=== PATIENT | male | born 1960 | race Caucasian/White ===

== ENCOUNTER 2018-05-01 19:52 | Inpatient (IN) | payer OTHER ==
[2018-05-01] MEDS: ALBUTEROL SO4 2.5/IPRATROPIUM 0.5 INH SOL 3 ML VIAL.NEB. NEB SCH ×3 (20:10→20:46)
[2018-05-01] MEDS ORDERED: ALBUTEROL SO4 2.5/IPRATROPIUM 0.5 INH SOL 3 ML VIAL.NEB. NEB ONE (20:20)
[2018-05-01 20:30] LABS: VENOUS PC02 48.2 mmHg (38-52); VENOUS PH 7.37 (7.32-7.42); VENOUS PO2 42.6 mmHg (28-48)
[2018-05-01 20:32] LABS: BASO % 0.4 % (0-2.0); EOS % 0.6 % (0-4.5); HEMATOCRIT 45.5 % (35.4-49); HEMOGLOBIN 15.7 GM/dL (11.7-16.9); LYMPH % 11.8 % (8-40); MCH 31.6 pg (25.7-33.7); MCHC 34.5 g/dl (32.0-35.9); MEAN CELL VOLUME 91.6 fl (80-96); MEAN PLT VOLUME 9.2 fl (7.5-11.1); MONO % 4.4 % (3.8-10.2); NEUT % 82.8 % (42.8-82.8); PLATELET COUNT 283 K/MM3 (134-434); RBC 4.97 M/mm3 (4.00-5.60); RDW 13.7 % (11.9-15.9); WHITE BLOOD COUNT 16.6 K/mm3 (4.0-10.0)
[2018-05-01 20:49] LABS: INR 0.99 (0.83-1.09); PROTHROMBIN TIME (PATIENT) 11.7 SEC (9.7-13.0)
[2018-05-01 20:52] LABS: ACTIVATED PTT 31.1 SECONDS (25.2-36.5)
[2018-05-01 21:06] LABS: ALBUMIN 4.2 g/dl (3.4-5.0); ALK PHOS 91 U/L (45-117); ANION GAP 8 MMOL/L (8-16); BILIRUBIN,TOTAL 0.5 mg/dL (0.2-1); BLOOD UREA NITROGEN 18 mg/dL (7-18); CALCIUM 9.3 mg/dL (8.5-10.1); CHLORIDE 103 mmol/L (98-107); CO2 27 mmol/L (21-32); CREATININE 0.5 mg/dL (0.55-1.3); GLUCOSE,RANDOM 97 mg/dL (74-106); SGOT/AST 16 U/L (15-37); SGPT/ALT 22 U/L (13-61); SODIUM 139 mmol/L (136-145); TOT PROT 7.7 g/dl (6.4-8.2)
[2018-05-01] MEDS ORDERED: VANCOMYCIN 1,000 MG in DEXTROSE 5%-WATER - 250 ML IVPB ONE (22:33)
[2018-05-01] MEDS ORDERED: PIPERACILLIN/TAZOB 3.375 GM 3.375 GM in DEXTROSE 5%-WATER - 50 ML IVPB ONE (22:33)
--- NOTE | 2018-05-01 22:37 | PDOC ---
Attending Attestation - HPI HPI: 05/01/18 23:10 The patient is a 57 year old male, with a significant past medical history of ALS, and DNR/DNI of who presents to the emergency department, via EMS, with chest pain since Sunday. The patient arrived monitored to a CPAP machine by EMS. The patients chest pain is associated with congestion, cough, and shortness of breath. The patient denies headache or dizziness. The patient denies fever, nausea, vomit, diarrhea or constipation. The patient denies dysuria, frequency, urgency or hematuria. Allergies: NKDA Past surgical history: None reported Social history: Active smoker - Physicial Exam PE: 05/01/18 23:11 GENERAL: Awake, alert, and fully oriented, uncomfortable appearing. HEAD: No signs of trauma EYES: PERRLA, EOMI, sclera anicteric, conjunctiva clear ENT: Auricles normal inspection, hearing grossly normal, nares patent, oropharynx clear without exudates. (+) dry mucosa NECK: Normal ROM, supple, no lymphadenopathy, JVD, or masses LUNGS:(+) rhonchorous. In distress, decreased breath sounds on right. No wheezes, and no crackles. No rails. HEART: (+) Tachycardic. normal S1 and S2, no murmurs, rubs or gallops ABDOMEN: Soft, nontender, normoactive bowel sounds. No guarding, no rebound. No masses EXTREMITIES:(+) flaccid upper and lower extremity. Normal range of motion, no edema. No clubbing or cyanosis. No cords, erythema, or tenderness NEUROLOGICAL: Cranial nerves II through XII grossly intact. Normal speech, normal gait SKIN: Warm, Dry, normal turgor, no rashes or lesions noted. <Landry Bronson - Last Filed: 05/01/18 23:10> - Resident Resident Name: Bernard Koehler - ED Attending Attestation I have performed the following: I have examined & evaluated the patient, The case was reviewed & discussed with the resident, I agree w/resident's findings & plan, Exceptions are as noted - Critical Care Time Total Critical Care Time: 45 Critical Care Statement: The care of this patient involved high complexity decision making to prevent further life threatening deterioration of the patient 's condition and/or to evaluate & treat vital organ system(s) failure or risk of failure. - Medical Decision Making 05/01/18 22:35 I, Dr. Bertha Weaver DO, attest that this document has been prepared under my direction and personally reviewed by me in its entirety. I further attest, that it accurately reflects all work, treatment, procedures and medical decision -making performed by me. 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 at night presents with 4 days of congestion/cough/sob -rhonchorous bs on exam, no fevers -pt is DNR/I, comfort care only w abx -pt does not want IVF hydration and fam in agreement -will give abx given cough/coarse bs -will send labs 05/01/18 22:54 pt requesting to be taken off bipap and placed on nrb-understands risks 05/01/18 22:55 r sided pna on cxr abx and cultures ordered and sent microblog sent to [facility] for admission for pna, comfort care + abx, resp failure 05/01/18 23:35 case discussed with [facility] who accepts pt to service <Bertha Weaver - Last Filed: 05/01/18 23:36> *DC/Admit/Observation/Transfer - Attestations Scribe Attestion: 05/01/18 23:11 Documentation prepared by Landry Bronson, acting as medical laboratory scientist for Bertha Weaver DO, MD <Landry Bronson - Last Filed: 05/01/18 23:10> - Discharge Dispostion Decision to Admit order: Yes <Bertha Weaver - Last Filed: 05/01/18 23:36> Diagnosis at time of Disposition: Pneumonia, Respiratory failure, ALS (amyotrophic lateral sclerosis) - Discharge Dispostion Condition at time of disposition: Stable Heart Score/ECG Review - ECG Intrepretation Comment:: 05/01/18 22:50 sinus tach at 106, nl axis, nl interval, baseline artifact, abnl ekg <Bertha Weaver - Last Filed: 05/01/18 23:36>
[2018-05-01] MEDS ORDERED: PIPERACILLIN/TAZOB 3.375 GM 3.375 GM/50 ML BAG IVPB ONE (22:38)
--- NOTE | 2018-05-01 22:57 | PDOC ---
History of Present Illness - General Chief Complaint: Shortness of Breath Stated Complaint: SHORTNESS OF BREATH Time Seen by Provider: 05/01/18 19:59 History Source: Patient Exam Limitations: Clinical Condition - History of Present Illness Initial Comments: 05/01/18 22:51 Patient is a 57M with history of ALS, DNR/DNI, active smoker coming in today with respiratory distress. Patient arrived via EMS on CPAP. Paperwork supplied by EMS state what the patient wants: DNR/DNI, no assistance with ventilation, no IV fluids, no feeding tubes. Patient is ok with antibiotics. On comfort care. Family and patient relate that he has been coughing for the past two days with chills. No nausea, vomiting. Does have chest pain. Past History - Past Medical History Allergies/Adverse Reactions: Allergies Allergy/AdvReac Type Severity Reaction Status Date / Time No Known Drug Allergies Allergy Verified 06/13/12 12:24 Home Medications: Ambulatory Orders Ascorbic Acid [Vitamin C] 500 mg PO DAILY 06/10/12 Oxycodone HCl/Acetaminophen [Percocet 5-325 mg Tablet] 1 - 2 combo PO Q4HWA PRN #60 tablet 06/13/12 Anemia: No Asthma: No Cancer: No Cardiac Disorders: No CVA: No COPD: No CHF: No Dementia: No Diabetes: No GI Disorders: No Disorders: No HTN: No Hypercholesterolemia: No Liver Disease: No Seizures: No Thyroid Disease: No Other medical history: H/O ALS - Surgical History Abdominal Surgery: No Appendectomy: No Cardiac Surgery: No Cholecystectomy: No Lung Surgery: No Neurologic Surgery: No Orthopedic Surgery: Yes (S/P INJURY TO RIGHT ARM) - Suicide/Smoking/Psychosocial Hx Smoking History: Unknown if ever smoked Have you smoked in the past 12 months: Yes Number of Cigarettes Smoked Daily: 20 'Breaking Loose' booklet given: 06/10/12 Hx Alcohol Use: No Drug/Substance Use Hx: No Substance Use Type: Alcohol Hx Substance Use Treatment: No Review of Systems - Review of Systems Comments:: 05/01/18 22:55 GENERAL/CONSTITUTIONAL: No fever or chills. No weakness. HEAD, EYES, EARS, NOSE AND THROAT: No change in vision. No sore throat. CARDIOVASCULAR: +chest pain +shortness of breath RESPIRATORY: +cough, no wheezing, or hemoptysis. GASTROINTESTINAL: No nausea, vomiting, diarrhea or constipation. GENITOURINARY: No dysuria, frequency, or change in urination. MUSCULOSKELETAL: No joint or muscle swelling or pain. No neck or back pain. SKIN: No rash NEUROLOGIC: No headache, vertigo, loss of consciousness, or change in strength/ sensation. ALLERGIC/IMMUNOLOGIC: No hives or skin allergy. *Physical Exam - Vital Signs Last Vital Signs Temp Pulse Resp BP Pulse Ox 98.2 F 116 H 24 H 167/112 H 99 05/01/18 19:53 05/01/18 19:53 05/01/18 19:53 05/01/18 19:53 05/01/18 20:00 - Physical Exam Comments: 05/01/18 22:56 GENERAL: Awake, alert, and fully oriented, in distress, cachetic HEAD: No signs of trauma, normocephalic, atraumatic EYES: PERRLA, EOMI, sclera anicteric, conjunctiva clear ENT: Auricles normal inspection, hearing grossly normal, nares patent, oropharynx clear without exudates. Moist mucosa NECK: Normal ROM, supple, no lymphadenopathy, JVD, or masses LUNGS: In distress, decreased breath sounds on right. HEART: Tachycardic, normal S1 and S2, no murmurs, rubs or gallops, peripheral pulses normal and equal bilaterally. ABDOMEN: Soft, nontender, normoactive bowel sounds. No guarding, no rebound. No masses EXTREMITIES: Normal inspection, Normal range of motion, no edema. No clubbing or cyanosis. NEUROLOGICAL: Cranial nerves II through XII grossly intact. Dysphagia and poor speech at baseline. No focal sensorimotor deficits SKIN: Warm, Dry, normal turgor, no rashes or lesions noted. Moderate Sedation - Procedure Monitoring Vital Signs: Procedure Monitoring Vital Signs Temperature 98.2 F 05/01/18 19:53 Pulse Rate 116 H 05/01/18 19:53 Respiratory Rate 24 H 05/01/18 19:53 Blood Pressure 167/112 H 05/01/18 19:53 O2 Sat by Pulse Oximetry (%) 99 05/01/18 20:00 ED Treatment Course - LABORATORY CBC & Chemistry Diagram: 05/01/18 20:14 05/01/18 20:14 - ADDITIONAL ORDERS Additional order review: Laboratory Results 05/01/18 05/01/18 05/01/18 20:14 20:14 20:14 PT with INR INR PTT (Actin FS) VBG pH 7.37 POC VBG pCO2 48.2 POC VBG pO2 42.6 Mixed VBG HCO3 27.2 H Sodium 139 Potassium 4.0 Chloride 103 Carbon Dioxide 27 Anion Gap 8 BUN 18 Creatinine 0.5 L Creat Clearance w eGFR > 60 Random Glucose 97 Lactic Acid 1.2 Calcium 9.3 Total Bilirubin 0.5 AST 16 ALT 22 Alkaline Phosphatase 91 Troponin I < 0.02 Total Protein 7.7 Albumin 4.2 05/01/18 20:14 PT with INR 11.70 INR 0.99 PTT (Actin FS) 31.1 VBG pH POC VBG pCO2 POC VBG pO2 Mixed VBG HCO3 Sodium Potassium Chloride Carbon Dioxide Anion Gap BUN Creatinine Creat Clearance w eGFR Random Glucose Lactic Acid Calcium Total Bilirubin AST ALT Alkaline Phosphatase Troponin I Total Protein Albumin 05/01/18 20:14 RBC 4.97 MCV 91.6 MCHC 34.5 RDW 13.7 MPV 9.2 Neutrophils % 82.8 D Lymphocytes % 11.8 D Monocytes % 4.4 Eosinophils % 0.6 D Basophils % 0.4 - RADIOLOGY Radiology Studies Ordered: Category Date Time Status CHEST X-RAY PORTABLE* [RAD] Stat Radiology 05/01/18 19:59 Taken - Medications Given in the ED: ED Medications Discontinued Medications Generic Name Dose Route Start Last Admin Trade Name Freq PRN Reason Stop Dose Admin Albuterol/Ipratropium 1 amp 05/01/18 20:00 05/01/18 20:46 Duoneb - NEB 05/01/18 20:46 1 amp Q15M TOBI Administration Medical Decision Making - Medical Decision Making 05/01/18 22:57 Patient is 57M with history of ALS here today with respiratory distress. Vitals notable for tachycardia, tachypnea. DDx includes, but is not limited to: neurogenic respiratory failure, pneumonia, copd. Will treat with duonebs and vanc/zosyn. Fluids not consistent with patient's goals at this time. After discussion with family and patient, all in agreement to remove bipap. Non- rebreather placed. Family advised that outcome is likely poor. CXR shows right sided multilobar pneumonia +leukocytosis, labs otherwise unremarkable. Hospitalist paged for admission. *DC/Admit/Observation/Transfer Diagnosis at time of Disposition: Pneumonia, ALS (amyotrophic lateral sclerosis), Respiratory failure - Discharge Dispostion Condition at time of disposition: Stable Decision to Admit order: Yes - Referrals - Patient Instructions - Post Discharge Activity
[2018-05-01] MEDS ORDERED: VANCOMYCIN 1 GRAM (PRE-DOCKED) 1,000 MG/250 ML BAG IVPB ONE (22:58)
--- NOTE | 2018-05-02 00:12 | PN ---
Teaching Attending Note Name of Resident: Swetha Boyce ATTENDING PHYSICIAN STATEMENT I saw and evaluated the patient. I reviewed the resident's note and discussed the case with the resident. I agree with the resident's findings and plan as documented. SUBJECTIVE: Patient is a 57 year old man with history of ALS, DNR/DNI, active smoker coming in today with severe respiratory distress. Patient arrived via EMS on CPAP. Paperwork supplied by EMS state what the patient wants: DNR/DNI, no assistance with ventilation, no IV fluids, no feeding tubes. Patient is okay with antibiotics. On comfort care. Family and patient relate that he has been coughing for the past two days with chills. No nausea, vomiting. Does have chest pain, but also says he has pain allover. OBJECTIVE: Alert and cachectic and in moderate respiratory distress on nonrebreather Vital Signs Period Temp Pulse Resp BP Sys/Rojas Pulse Ox Last 24 Hr 98.2 F 116-122 20-24 159-167/99-112 97-99 HEENT: No Jaundice, eye redness or discharge, PERRLA, EOMI. Normocephalic, atraumatic. External ears are normal and hearing is grossly intact. No nasal discharge. Neck: Supple, nontender. No palpable adenopathy or thyromegaly. No JVD Chest: Good effort. Diffuse rhonchi. Clear to percussion. Heart: Regular. No S3, rub or murmur Abdomen: Not distended, soft, nontender and no HSM. No rebound or guarding. Normoactive bowel sounds. Ext: Peripheral pulses intact. No leg edema. Skin: Warm and dry. No petechiae, rash or ecchymosis. Neuro: Alert. Oriented to person and place. Global weakness with very little muscle resistance to movement. CN 2-12 grossly intact. Sensation grossly intact in all four extremities and DTR are diminishes symmetric. Current Medications Generic Name Dose Route Start Last Admin Trade Name Freq PRN Reason Stop Dose Admin Baclofen 10 mg 05/02/18 06:00 Lioresal - PO TID [facility] Gabapentin 300 mg 05/02/18 06:00 Neurontin - PO TID [facility] Ceftriaxone Sodium 1 gm/ 50 mls @ 100 mls/hr 05/02/18 10:00 Dextrose IVPB DAILY [facility] Protocol Metronidazole 500 mg in 100 mls @ 100 mls/hr 05/02/18 03:00 Flagyl 500mg Premixed Ivpb - IVPB Q6H-IV TOBI Methylprednisolone Sodium Succinate 60 mg 05/02/18 01:30 Solu-Medrol - IVPUSH Q6H-IV TOBI Morphine Sulfate 2 mg 05/02/18 00:12 Morphine Sulfate IVPUSH Q4H PRN PAIN LEVEL 6-10 Non-Formulary Medication 10 mg 05/02/18 22:00 Diazepam [Diazepam] PO HS [facility] Home Medications Medication Instructions Recorded Ascorbic Acid [Vitamin C] 500 mg PO DAILY 06/10/12 Oxycodone HCl/Acetaminophen 1 - 2 combo PO Q4HWA PRN #60 tablet 06/13/12 [Percocet 5-325 mg Tablet] Baclofen 10 mg PO TID 05/02/18 Diazepam 10 mg PO HS 05/02/18 Gabapentin 300 mg PO TID 05/02/18 Mirtazapine [Remeron -] 15 mg PO DAILY 05/02/18 Zolpidem Tartrate [Ambien] 15 mg PO DAILY 05/02/18 Abnormal Lab Results 05/01/18 05/01/18 05/01/18 20:14 20:14 20:14 WBC 16.6 H Absolute Neuts (auto) 13.8 H Mixed VBG HCO3 27.2 H Creatinine 0.5 L Urine Ketones Urine Blood 05/02/18 00:30 WBC Absolute Neuts (auto) Mixed VBG HCO3 Creatinine Urine Ketones 1+ H Urine Blood 2+ H ASSESSMENT AND PLAN: 1. Pneumonia with acute respiratory failure - CXR shows RLL infiltrate consistent with aspiration pneumonia. Patient does not want Bipap - will continue on nonrebreather. Will treat with IV Rocephin and Flagyl; solumedrol and duoneb. Restart his necessary home medications. Provide comfort care in accordance with patient and familys' wishes; consult palliative care; use IV morphine for pain control and provide generous emotional support. Will keep him NPO for now because of difficulty swallowing. Consult speech and swallow for evaluation. 2. DVT prophylaxis - Lovenox 40 mg SQ q 24 hours. 3. Advance directives - DNR/DNI
--- NOTE | 2018-05-02 00:12 | HP ---
CHIEF COMPLAINT: SOB HISTORY OF PRESENT ILLNESS: Patient is a 57yo M with a PMHX of ALS, DNR/DNI, presenting with worsening shortness of breath over the last 3 days. Patient and family state he has been coughing with sputum production. He does not know the color because he is unable to spit it up. He also says he has congestion and worsening shortness of breath. He said he may have choked on food over the last few days because of dysphagia. Patient/Family say he has "end-stage ALS" and want mostly comfort measures. They are refusing IV fluids, blood draws and further testing, but are requesting Antibiotics and selected home medications. They do not want BIPAP but are in agreement with a non-rebreather. Patient's family are requesting palliative care. Patient also complains of diffuse pain all over his body and requests comfort care. ER course was notable for: (1) R sided PNA on CXR (2) Vanc/Zosyn given in ED (3) 116 HR, 16.6 WBC Social History: Smoking: daily smoker Family History: Allergies No Known Drug Allergies Allergy (Verified 06/13/12 12:24) HOME MEDICATIONS: Home Medications Medication Instructions Recorded Ascorbic Acid [Vitamin C] 500 mg PO DAILY 06/10/12 Oxycodone HCl/Acetaminophen 1 - 2 combo PO Q4HWA PRN #60 tablet 06/13/12 [Percocet 5-325 mg Tablet] REVIEW OF SYSTEMS CONSTITUTIONAL: Absent: fever, chills, diaphoresis, generalized weakness, malaise, loss of appetite, weight change HEENT: nasal congestion Absent: rhinorrhea, throat pain, throat swelling, difficulty swallowing, mouth swelling, ear pain, eye pain, visual changes CARDIOVASCULAR: Absent: chest pain, syncope, palpitations, irregular heart rate, lightheadedness , peripheral edema RESPIRATORY: cough, sob, dyspnea Absent: dyspnea with exertion, orthopnea, wheezing, stridor, hemoptysis GASTROINTESTINAL: Absent: abdominal pain, abdominal distension, nausea, vomiting, diarrhea, constipation, melena, hematochezia GENITOURINARY: Absent: dysuria, frequency, urgency, hesitancy, hematuria, flank pain, genital pain MUSCULOSKELETAL: Absent: myalgia, arthralgia, joint swelling, back pain, neck pain SKIN: Absent: rash, itching, pallor HEMATOLOGIC/IMMUNOLOGIC: Absent: easy bleeding, easy bruising, lymphadenopathy, frequent infections PHYSICAL EXAMINATION Vital Signs - 24 hr 05/01/18 05/01/18 05/01/18 19:53 20:00 23:34 Temperature 98.2 F Pulse Rate 116 H Respiratory 24 H Rate Blood Pressure 167/112 H O2 Sat by Pulse 97 99 98 Oximetry (%) GENERAL: cachetic, a/o x 3, in moderate distress, dyspneic, tachypneic EYES: conjunctiva clear. EARS, NOSE, THROAT: oropharynx clear without exudates.dry mucous membranes NECK: supple without lymphadenopathy, JVD, or masses. LUNGS: rhonchorus breath sounds, decreased breath sounds on right. HEART: Regular rate and rhythm, normal S1 and S2 without murmur, rub or gallop. ABDOMEN: Soft, nontender, not distended, normoactive bowel sounds MUSCULOSKELETAL:: flaccid upper and lower extremity. LOWER EXTREMITIES: 2+ pulses, No peripheral edema. PSYCHIATRIC: Cooperative. Laboratory Results - last 24 hr 05/01/18 05/01/18 05/01/18 20:14 20:14 20:14 WBC 16.6 H RBC 4.97 Hgb 15.7 Hct 45.5 MCV 91.6 MCH 31.6 MCHC 34.5 RDW 13.7 Plt Count 283 MPV 9.2 Absolute Neuts (auto) 13.8 H Neutrophils % 82.8 D Lymphocytes % 11.8 D Monocytes % 4.4 Eosinophils % 0.6 D Basophils % 0.4 Nucleated RBC % 0 PT with INR 11.70 INR 0.99 PTT (Actin FS) 31.1 VBG pH 7.37 POC VBG pCO2 48.2 POC VBG pO2 42.6 Mixed VBG HCO3 27.2 H Sodium Potassium Chloride Carbon Dioxide Anion Gap BUN Creatinine Creat Clearance w eGFR Random Glucose Lactic Acid Calcium Total Bilirubin AST ALT Alkaline Phosphatase Troponin I Total Protein Albumin 05/01/18 05/01/18 20:14 20:14 WBC RBC Hgb Hct MCV MCH MCHC RDW Plt Count MPV Absolute Neuts (auto) Neutrophils % Lymphocytes % Monocytes % Eosinophils % Basophils % Nucleated RBC % PT with INR INR PTT (Actin FS) VBG pH POC VBG pCO2 POC VBG pO2 Mixed VBG HCO3 Sodium 139 Potassium 4.0 Chloride 103 Carbon Dioxide 27 Anion Gap 8 BUN 18 Creatinine 0.5 L Creat Clearance w eGFR > 60 Random Glucose 97 Lactic Acid 1.2 Calcium 9.3 Total Bilirubin 0.5 AST 16 ALT 22 Alkaline Phosphatase 91 Troponin I < 0.02 Total Protein 7.7 Albumin 4.2 ASSESSMENT/PLAN: 57yo M with a PMHX of ALS, DNR/DNI, presenting with worsening shortness of breath over the last 3 days. #Acute Respiratory Failure -2/2 Possible Aspiration PNA -CXR shows RLL infiltrate. -IV abx: 1x Vanc, Zosyn -Start Ceftriaxone, Flagyl -No IV fluids per patient/family request -No further testing, including sputum cultures, lab work, IV fluids. -No duonebs per patient request. -Patient gives permission for IV steroids. -Start Medrol 60 q6 -Med-Rec and continue home meds per family request -palliative care -morphine 2mg PRN for pain control -speech and swallow #ALS -cont. Home medications -Baclofen 10mg TID -Gabapentin 300 TID -Diazepam 10mg HS -confirm whether patient takes Remeron and Zolpidem. #FEN -no IV fluids -no further lab testing -NPO Patient/Family say he has "end-stage ALS" and want mostly comfort measures. They are refusing IV fluids, blood draws and further testing, but are requesting Antibiotics and selected home medications. They do not want BIPAP but are in agreement with a non-rebreather Med-surge Visit type - Emergency Visit Emergency Visit: Yes ED Registration Date: 05/01/18 Care time: The patient presented to the Emergency Department on the above date and was hospitalized for further evaluation of their emergent condition. - New Patient This patient is new to me today: Yes Date on this admission: 05/03/18 - Critical Care Critical Care patient: No
[2018-05-02] MEDS ORDERED: morphine CARPU-JECT 2 MG/1 ML DISP.SYRIN IVPUSH ONE (00:34)
[2018-05-02] MEDS ORDERED: MORPHINE SULFATE 2 MG/ML VIAL ONE (00:37)
[2018-05-02] MEDS ORDERED: ALBUTEROL SO4 0.083% IH SOL 2.5 MG/3 ML VIAL.NEB. NEB PRN (00:39)
[2018-05-02] MEDS ORDERED: ALBUTEROL SO4 2.5/IPRATROPIUM 0.5 INH SOL 3 ML VIAL.NEB. NEB SCH (00:45)
[2018-05-02] MEDS ORDERED: methylPREDNISolone NA SUCC 125 MG/2 ML VIAL IVPUSH SCH (00:45)
[2018-05-02 00:47] LABS: URINE APPEARANCE CLEAR; URINE BILIRUBIN NEGATIVE (<2.0 mg/dL); URINE COLOR YELLOW; URINE GLUCOSE (UA) NEGATIVE (NEGATIVE); URINE KETONE 1+ (NEGATIVE); URINE LEUK ESTERASE NEGATIVE (NEGATIVE); URINE NITRITE NEGATIVE (NEGATIVE); URINE PROTEIN NEGATIVE (NEGATIVE); URINE UROBILINOGEN NEGATIVE mg/dL (0.2-1.0)
[2018-05-02 00:59] LABS: EPI CELLS RARE /HPF (FEW); URINE BACTERIA RARE /hpf (NONE SEEN); URINE MUCUS MODERATE
[2018-05-02] MEDS ORDERED: MORPHINE SULFATE 2 MG/ML VIAL IVPUSH ONE (02:03)
[2018-05-02] MEDS: methylPREDNISolone NA SUCC 125 MG/2 ML VIAL IVPUSH SCH ×4 (02:11→21:46)
[2018-05-02] MEDS: MORPHINE SULFATE 2 MG/ML VIAL IVPUSH PRN ×2 (05:21→09:20)
[2018-05-02] MEDS: BACLOFEN 10 MG TABLET (FP) PO SCH ×5 (05:22→22:00)
[2018-05-02] MEDS: GABAPENTIN 300 MG CAPSULE (FP) PO SCH ×5 (05:22→22:19)
[2018-05-02] MEDS ORDERED: cefTRIAXone SODIUM 1 GM VIAL ONE (09:11)
[2018-05-02] MEDS ORDERED: DEXTROSE 5%-WATER - 50 ML IVPB ONE (09:12)
--- NOTE | 2018-05-02 09:14 | PN ---
Teaching Attending Note Name of Resident: Kenneth Smith ATTENDING PHYSICIAN STATEMENT I saw and evaluated the patient. I reviewed the resident's note and discussed the case with the resident. I agree with the resident's findings and plan as documented. SUBJECTIVE: c/o pain refusing for BIPAP OBJECTIVE: Vital Signs Temperature 98.8 F 05/02/18 01:38 Pulse Rate 135 H 05/02/18 01:38 Respiratory Rate 20 05/02/18 01:38 Blood Pressure 147/88 05/02/18 01:38 O2 Sat by Pulse Oximetry (%) 90 L 05/02/18 02:00 Elderly man cachectic on NRB mask mild respiratory distress HEENT: Mm dry, NECK; No JVD No Bruit CHEST: conducted sound no rhonci or wheezes CVS: S1S2 Tachycardia no m/r/g ABD: No distention BS + EXT: no edema CORRECTIONAL COUNSELOR/CASE MANAGER: advanced ALS with qudriplegia CBC, BMP 05/01/18 20:14 05/01/18 20:14 Active Medications Baclofen (Lioresal -) 10 mg PO TID TOBI Last Admin: 05/02/18 05:26 Dose: Not Given Diazepam (Valium -) 10 mg PO HS [facility] Gabapentin (Neurontin -) 300 mg PO TID TO[facility] Last Admin: 05/02/18 05:26 Dose: Not Given Ceftriaxone Sodium 1 gm/ (Dextrose) 50 mls @ 100 mls/hr IVPB DAILY [facility]; Protocol Metronidazole (Flagyl 500mg Premixed Ivpb -) 500 mg in 100 mls @ 100 mls/hr IVPB Q6H-IV TOBI Last Admin: 05/02/18 02:11 Dose: 100 mls/hr Methylprednisolone Sodium Succinate (Solu-Medrol -) 60 mg IVPUSH Q6H-IV TOBI Last Admin: 05/02/18 02:11 Dose: 60 mg Morphine Sulfate (Morphine Sulfate) 2 mg IVPUSH Q4H PRN PRN Reason: PAIN LEVEL 6-10 Last Admin: 05/02/18 05:21 Dose: 2 mg ASSESSMENT AND PLAN: 57 yrs old advanced ALS with functional qudriplegia F/U at [facility] , bed bound BIB sister with c/o SOB and Palliative care , patient is alert oriented make all decision in the Ed Hypoxic and c/o body pain , doesnt want any labs, intervention, PEG placement only agrrreeing for IV abx. Problem List - Problems (1) ALS (amyotrophic lateral sclerosis) Assessment/Plan: advanced involving lower extermities, upper extermities and cbulbar palsy Code(s): G12.21 - AMYOTROPHIC LATERAL SCLEROSIS (2) Pneumonia Assessment/Plan: most likely aspiration pneumonia Code(s): J18.9 - PNEUMONIA, UNSPECIFIED ORGANISM (3) Functional quadriplegia Assessment/Plan: Due to ALS Code(s): R53.2 - FUNCTIONAL QUADRIPLEGIA (4) Palliative care encounter Assessment/Plan: Referred to pallitive care to define goals and care Code(s): Z51.5 - ENCOUNTER FOR PALLIATIVE CARE
[2018-05-02] MEDS ORDERED: AZITHROMYCIN IVPB 250 MG in DEXTROSE 5%-WATER - 250 ML IVPB SCH (10:00)
[2018-05-02] MEDS ORDERED: ZOLPIDEM TARTRATE 15 MG PO SCH (10:00)
[2018-05-02] MEDS: CEFTRIAXONE 1 GM in DEXTROSE 5%-WATER - 50 ML IVPB SCH (11:07)
[2018-05-02 11:32] VITALS: BMI 18.5
--- NOTE | 2018-05-02 11:50 | CONSULT ---
Admitting History and Physical - Primary Care Physician PCP: Clifford Parisi - Admission History of Present Illness: Per EMR: Patient is a 57yo M with a PMHX of ALS, DNR/DNI, presenting with worsening shortness of breath over the last 3 days. Patient and family state he has been coughing with sputum production. He does not know the color because he is unable to spit it up. He also says he has congestion and worsening shortness of breath. He said he may have choked on food over the last few days because of dysphagia. Patient/Family say he has "end-stage ALS" and want mostly comfort measures. They are refusing IV fluids, blood draws and further testing, but are requesting Antibiotics and selected home medications. They do not want BIPAP but are in agreement with a non-rebreather. Patient's family are requesting palliative care. Patient also complains of diffuse pain all over his body and requests comfort. ER course was notable for: (1) R sided PNA on CXR (2) Vanc/Zosyn given in ED (3) 116 HR, 16.6 WBC Pt's caregiver was present and served as informant. He was eating regular food/ thin liquid with fair tolerance until recently.He communicated with a computer with a camera,mouse by hisside, until a month ago. History Source: Caregiver Limitations to Obtaining History: Clinical Condition - Smoking History Smoking history: Current every day smoker Have you smoked in the past 12 months: Yes Aproximately how many cigarettes per day: 20 - Alcohol/Substance Use Hx Alcohol Use: No History - Admission Reason For Visit: AMYOTROPIC LATERAL SCLEROSIS PNEUMONIA - Diagnostics X-ray: Report Reviewed - General Mental Status: Alert and Oriented, Awake and Alert, Able to Follow Commands Attention: Intact Ability to Follow Directions: Good Head/Neck Control: Impaired - Hearing Hearing: Normal Speech Evaluation - Communication Primary Language: MALTESE Communication: Yes: Dysarthria Oral Expression Ability: Yes: Severe Impairment - Speech Production Able to Make Needs Known: Yes: Severely Impaired Intelligibility: Yes: Severely Impaired - Speech Characteristics Voice Loudness: Mildly Soft/Quiet Voice Pitch: Yes: Moderatley Low Voice Phonatory-based Quality: Yes: Harsh Speech Pattern: Impaired Speech Clarity: < 25% Nasal Resonance: Hypernasal Articulation: Yes: Imprecise (poor differentiation of vowels/consonants with moderate to severely weak tongue/labial function) Voice, Other Observations: Yes: Inadequate Breath Support - Language/Auditory Comprehension Observation: Able to respond to yes/no queries: Yes, Yes/No Confusion: No, Comprehends Conversational Speech: Yes - Language/Verbal Expression Able to Communicate Wants and Needs: Yes: Severely Impaired Functional Communication Status: Yes: Severely Impaired - Swallow Evaluation/Bedside Assessment Current Nutritional Intake: NPO Oral Secretions: Yes: WFL Dentition: Yes: Adequate Jaw Position: Open at Rest Against Resistance Opening: Weak Against Resistance Closing: Weak Pucker Lips: Weak Smile: Weak Lingual Speed of Movement: Reduced Lingual Movement Strgth Against Opposition: Reduced Lingual Movement Characteristics: Fasciculations Velopharyngeal Movement: Hypernasality Laryngeal Elevation: Impaired Laryngeal Movement: Reduced Excursion, Labored,delay initiation, Reduced Velocity Needs Assistance: Yes Recommendations - Speech Evaluation, Impression/Plan Impression: Unfortunate 57 yo with ALS with severe Bulbar symptoms including Dyarthria/Dysphagia. Pt is DNR/DNI. He refused PO trials or use of communication board with me or staff. Yes/No reponses are appropriate and provide pt with some ability to respond to questions although ability to express himself is severely impaired. Pt has a non rebreather on, which worsens verbal communication, although even when briefly removed, intelligibilty and functional communication is quite poor. - Disposition Discharge to: Hospice, To be Determined - Dysphagia Impressions/Plan Swallowing Skills: Impaired Dysphagia Impressions: Suspect Aspiration *Silent aspiration: cannot be R/O at bedside Dysphagia Treatment Plan: Other (mouth care if pt desires. Maintain HOB elevated , as tolerated and desired.) Recommendations: Other (To maximize communication, ask broad Yes/No questions initially eg -Do you need something? Are you comfortable? followed by more specific questions to anticipate wants/needs such as to you want me to adjust your position? Head, arms/legs/right/left etc.) - Recommendations Diet Consistency: NPO Liquids: NPO
[2018-05-02] MEDS ORDERED: MORPHINE SULFATE 2 MG/ML VIAL IVPUSH PRN (11:52)
--- NOTE | 2018-05-02 14:04 | PN ---
Physical Exam: SUBJECTIVE: Patient seen and examined OBJECTIVE: Vital Signs Period Temp Pulse Resp BP Sys/Rojas Pulse Ox Last 24 Hr 98.2 F-98.8 F 116-135 20-24 147-167/88-112 90-99 GENERAL: cachetic, a/o x 3, in moderate distress, dyspneic, tachypneic EYES: conjunctiva clear. EARS, NOSE, THROAT: oropharynx clear without exudates.dry mucous membranes NECK: supple without lymphadenopathy, JVD, or masses. LUNGS: no wheezing, no ronchi HEART: Regular rate and rhythm, normal S1 and S2 without murmur, rub or gallop. ABDOMEN: Soft, nontender, not distended, normoactive bowel sounds MUSCULOSKELETAL:: flaccid upper and lower extremity. LOWER EXTREMITIES: 2+ pulses, No peripheral edema. PSYCHIATRIC: Cooperative. Laboratory Results - last 24 hr 05/01/18 05/01/18 05/01/18 20:14 20:14 20:14 WBC 16.6 H RBC 4.97 Hgb 15.7 Hct 45.5 MCV 91.6 MCH 31.6 MCHC 34.5 RDW 13.7 Plt Count 283 MPV 9.2 Absolute Neuts (auto) 13.8 H Neutrophils % 82.8 D Lymphocytes % 11.8 D Monocytes % 4.4 Eosinophils % 0.6 D Basophils % 0.4 Nucleated RBC % 0 PT with INR 11.70 INR 0.99 PTT (Actin FS) 31.1 VBG pH 7.37 POC VBG pCO2 48.2 POC VBG pO2 42.6 Mixed VBG HCO3 27.2 H Sodium Potassium Chloride Carbon Dioxide Anion Gap BUN Creatinine Creat Clearance w eGFR Random Glucose Lactic Acid Calcium Total Bilirubin AST ALT Alkaline Phosphatase Troponin I Total Protein Albumin Urine Color Urine Appearance Urine pH Ur Specific [place] Urine Protein Urine Glucose (UA) Urine Ketones Urine Blood Urine Nitrite Urine Bilirubin Urine Urobilinogen Ur Leukocyte Esterase Urine WBC (Auto) Urine RBC (Auto) Ur Epithelial Cells Urine Bacteria Urine Mucus 05/01/18 05/01/18 05/02/18 20:14 20:14 00:30 WBC RBC Hgb Hct MCV MCH MCHC RDW Plt Count MPV Absolute Neuts (auto) Neutrophils % Lymphocytes % Monocytes % Eosinophils % Basophils % Nucleated RBC % PT with INR INR PTT (Actin FS) VBG pH POC VBG pCO2 POC VBG pO2 Mixed VBG HCO3 Sodium 139 Potassium 4.0 Chloride 103 Carbon Dioxide 27 Anion Gap 8 BUN 18 Creatinine 0.5 L Creat Clearance w eGFR > 60 Random Glucose 97 Lactic Acid 1.2 Calcium 9.3 Total Bilirubin 0.5 AST 16 ALT 22 Alkaline Phosphatase 91 Troponin I < 0.02 Total Protein 7.7 Albumin 4.2 Urine Color Yellow Urine Appearance Clear Urine pH 5.0 Ur Specific [place] 1.024 Urine Protein Negative Urine Glucose (UA) Negative Urine Ketones 1+ H Urine Blood 2+ H Urine Nitrite Negative Urine Bilirubin Negative Urine Urobilinogen Negative Ur Leukocyte Esterase Negative Urine WBC (Auto) 5 Urine RBC (Auto) 43 Ur Epithelial Cells Rare Urine Bacteria Rare Urine Mucus Moderate Active Medications Generic Name Dose Route Start Last Admin Trade Name Freq PRN Reason Stop Dose Admin Baclofen 10 mg 05/02/18 06:00 05/02/18 13:50 Lioresal - PO 10 mg TID TOBI Administration Diazepam 10 mg 05/02/18 22:00 Valium - PO HS TOBI Gabapentin 300 mg 05/02/18 06:00 05/02/18 13:50 Neurontin - PO 300 mg TID TOBI Administration Ceftriaxone Sodium 1 gm/ 50 mls @ 100 mls/hr 05/02/18 10:00 05/02/18 11:07 Dextrose IVPB 100 mls/hr DAILY TOBI Administration Protocol Metronidazole 500 mg in 100 mls @ 100 mls/hr 05/02/18 03:00 05/02/18 11:08 Flagyl 500mg Premixed Ivpb - IVPB 100 mls/hr Q6H-IV TOBI Administration Methylprednisolone Sodium Succinate 60 mg 05/02/18 01:30 05/02/18 11:08 Solu-Medrol - IVPUSH 60 mg Q6H-IV TOBI Administration Morphine Sulfate 2 mg 05/02/18 15:00 Morphine Sulfate IVPUSH Q6H-IV TOBI Morphine Sulfate 2 mg 05/02/18 11:52 Morphine Sulfate IVPUSH Q4H PRN PAIN LEVEL 6-10 ASSESSMENT/PLAN:57yo M with a PMHX of ALS, DNR/DNI, presenting with worsening shortness of breath over the last 3 days. #Acute Respiratory Failure -2/2 Possible Aspiration PNA -CXR shows RLL infiltrate. - antibiotic Ceftriaxone, Flagyl -No IV fluids per patient/family request -No further testing, including sputum cultures, lab work, IV fluids. -No duonebs per patient request. -Patient gives permission for IV steroids. -Start Medrol 40 q6 -palliative care consult appreciated -morphine 2mg PRN for pain control and standing -speech and swallow consult appreciated #ALS -cont. Home medications -Baclofen 10mg TID -Gabapentin 300 TID -Diazepam 10mg HS -confirm whether patient takes Remeron and Zolpidem. #FEN -no IV fluids -no further lab testing -NPO Med-surge Visit type - Emergency Visit Emergency Visit: Yes ED Registration Date: 05/01/18 Care time: The patient presented to the Emergency Department on the above date and was hospitalized for further evaluation of their emergent condition. - New Patient This patient is new to me today: Yes Date on this admission: 05/03/18 - Critical Care Critical Care patient: No
[2018-05-02] MEDS: MORPHINE SULFATE 2 MG/ML VIAL IVPUSH SCH ×2 (15:09→21:44)
--- NOTE | 2018-05-02 16:56 | EKG ---
Test Reason : Blood Pressure : / mmHG Vent. Rate : 106 BPM Atrial Rate : 106 BPM P-R Int : 148 ms QRS Dur : 100 ms QT Int : 354 ms P-R-T Axes : 055 080 037 degrees QTc Int : 470 ms POOR DATA QUALITY, INTERPRETATION MAY BE ADVERSELY AFFECTED SINUS TACHYCARDIA POSSIBLE LEFT ATRIAL ENLARGEMENT T WAVE ABNORMALITY, CONSIDER INFERIOR ISCHEMIA ABNORMAL ECG WHEN COMPARED WITH ECG OF 10-JUN-2012 10:01, T WAVE INVERSION NOW EVIDENT IN INFERIOR LEADS T WAVE INVERSION NOW EVIDENT IN ANTERIOR LEADS Confirmed by MATTHEW MAGANA MD ([id number]) on 05/02/2018 4:55:50 PM Referred By: Confirmed By:MATTHEW MAAGNA MD
[2018-05-02] MEDS: D5-1/2NS+20 MEQ KCL - 20 MEQ/1,000 ML INFUS.BAG IV SCH (20:13)
[2018-05-02] MEDS: diazePAM 5 MG TABLET PO SCH ×2 (21:50→22:20)
[2018-05-03] MEDS: MORPHINE SULFATE 2 MG/ML VIAL IVPUSH SCH ×4 (02:27→21:02)
[2018-05-03] MEDS: methylPREDNISolone NA SUCC 125 MG/2 ML VIAL IVPUSH SCH ×4 (02:29→21:02)
[2018-05-03] MEDS ORDERED: LORazepam 2 MG/ML SDV VIAL IVPUSH ONE (03:16)
[2018-05-03] MEDS: BACLOFEN 10 MG TABLET (FP) PO SCH ×3 (06:06→21:09)
[2018-05-03] MEDS: GABAPENTIN 300 MG CAPSULE (FP) PO SCH ×3 (06:06→21:09)
--- NOTE | 2018-05-03 09:25 | PN ---
Teaching Attending Note Name of Resident: Kenneth Smith ATTENDING PHYSICIAN STATEMENT I saw and evaluated the patient. I reviewed the resident's note and discussed the case with the resident. I agree with the resident's findings and plan as documented. SUBJECTIVE: OBJECTIVE: Vital Signs Temp 98.5 F 05/02/18 23:00 Pulse 109 H 05/02/18 23:00 Resp 21 H 05/02/18 23:00 BP 134/89 05/02/18 23:00 Pulse Ox 94 L 05/02/18 21:00 Elderly man cachectic on NRB mask mild respiratory distress HEENT: Mm dry, NECK; No JVD No Bruit CHEST: conducted sound no rhonci or wheezes CVS: S1S2 Tachycardia no m/r/g ABD: No distention BS + EXT: no edema PRODUCT MARKETING CONSULTANT: advanced ALS with qudriplegia Active Medications Baclofen (Lioresal -) 10 mg PO TID TOBI Last Admin: 05/02/18 05:26 Dose: Not Given Diazepam (Valium -) 10 mg PO HS TOBI Gabapentin (Neurontin -) 300 mg PO TID TOBI Last Admin: 05/02/18 05:26 Dose: Not Given Ceftriaxone Sodium 1 gm/ (Dextrose) 50 mls @ 100 mls/hr IVPB DAILY TOBI; Protocol Metronidazole (Flagyl 500mg Premixed Ivpb -) 500 mg in 100 mls @ 100 mls/hr IVPB Q6H-IV TOBI Last Admin: 05/02/18 02:11 Dose: 100 mls/hr Methylprednisolone Sodium Succinate (Solu-Medrol -) 60 mg IVPUSH Q6H-IV TOBI Last Admin: 05/02/18 02:11 Dose: 60 mg Morphine Sulfate (Morphine Sulfate) 2 mg IVPUSH Q4H PRN PRN Reason: PAIN LEVEL 6-10 Last Admin: 05/02/18 05:21 Dose: 2 mg ASSESSMENT AND PLAN: 57 yrs old advanced ALS with functional qudriplegia F/U at [facility] , bed bound BIB sister with c/o SOB and Palliative care , patient is alert oriented make all decision in the Ed Hypoxic and c/o body pain , today agreed for swallow evaluation and labs Problem List - Problems (1) ALS (amyotrophic lateral sclerosis) Assessment/Plan: advanced involving lower extremities, upper extremities and bulbar palsy (2) Pneumonia Assessment/Plan: most likely aspiration pneumonia cont current abx F/U CBC BMP Code(s): J18.9 - PNEUMONIA, UNSPECIFIED ORGANISM (3) Functional quadriplegia Assessment/Plan: Due to ALS Code(s): R53.2 - FUNCTIONAL QUADRIPLEGIA (4) Palliative care encounter Assessment/Plan: Referred to pallitive care to define goals and care Code(s): Z51.5 - ENCOUNTER FOR PALLIATIVE CARE
[2018-05-03] MEDS ORDERED: DEXTROSE 5%-WATER - 50 ML IVPB ONE (09:59)
[2018-05-03] MEDS ORDERED: cefTRIAXone SODIUM 1 GM VIAL ONE (09:59)
[2018-05-03] MEDS: CEFTRIAXONE 1 GM in DEXTROSE 5%-WATER - 50 ML IVPB SCH (10:01)
[2018-05-03] MEDS: D5-1/2NS+20 MEQ KCL - 20 MEQ/1,000 ML INFUS.BAG IV SCH ×2 (19:09→21:09)
[2018-05-03] MEDS: diazePAM 5 MG TABLET PO SCH (21:09)
[2018-05-04] MEDS: methylPREDNISolone NA SUCC 125 MG/2 ML VIAL IVPUSH SCH ×2 (02:00→09:33)
[2018-05-04] MEDS: GABAPENTIN 300 MG CAPSULE (FP) PO SCH (07:05)
[2018-05-04] MEDS: MORPHINE SULFATE 2 MG/ML VIAL IVPUSH SCH ×2 (07:05→12:40)
[2018-05-04] MEDS: BACLOFEN 10 MG TABLET (FP) PO SCH ×2 (07:05→13:06)
--- NOTE | 2018-05-04 08:28 | PN ---
Progress Note, Physician Chief Complaint: Patient s more drowsy and hypotensive, yesterday after intial agreement refused for blood draw only agreed for IV abx and hydration even refused for morphine that was offerred last night for discomfort. History of Present Illness: 57 yrs old advanced ALS with functional qudriplegia F/U at [facility] , bed bound BIB sister with c/o SOB and Palliative care , patient is alert oriented make all decision in the Ed Hypoxic and c/o body pain , failed swallow evaluation. today had episode of hypotention and worsening mental status - Current Medication List Current Medications: Active Medications Baclofen (Lioresal -) 10 mg PO TID TOBI Last Admin: 05/04/18 07:05 Dose: Not Given Diazepam (Valium -) 10 mg PO HS [facility] Last Admin: 05/03/18 21:09 Dose: Not Given Gabapentin (Neurontin -) 300 mg PO TID TOBI Last Admin: 05/04/18 07:05 Dose: Not Given Ceftriaxone Sodium 1 gm/ (Dextrose) 50 mls @ 100 mls/hr IVPB DAILY TOBI; Protocol Last Admin: 05/03/18 10:01 Dose: 100 mls/hr Metronidazole (Flagyl 500mg Premixed Ivpb -) 500 mg in 100 mls @ 100 mls/hr IVPB Q6H-IV TOBI Last Admin: 05/04/18 02:00 Dose: 100 mls/hr Potassium Chloride/Dextrose/Sod Cl (D5-1/2ns+20 Meq Kcl -) 20 meq in 1,000 mls @ 50 mls/hr IV ASDIR TOBI Last Admin: 05/03/18 21:09 Dose: 50 mls/hr Methylprednisolone Sodium Succinate (Solu-Medrol -) 60 mg IVPUSH Q6H-IV TOBI Last Admin: 05/04/18 02:00 Dose: 60 mg Morphine Sulfate (Morphine Sulfate) 2 mg IVPUSH Q6H-IV TOBI Last Admin: 05/04/18 07:05 Dose: Not Given Morphine Sulfate (Morphine Sulfate) 2 mg IVPUSH Q4H PRN PRN Reason: PAIN LEVEL 6-10 - Objective Vital Signs: Vital Signs Vital Signs Temperature 98.6 F 05/04/18 08:39 Pulse Rate 86 05/04/18 09:15 Respiratory Rate 18 05/04/18 09:15 Blood Pressure 78/48 L 05/04/18 09:15 O2 Sat by Pulse Oximetry (%) 95 05/03/18 21:00 Elderly man cachectic on NRB mask, drowsy not responding to verbal command in respiratory distress HEENT: Mm dry, NECK; No JVD No Bruit CHEST: conducted sound no rhonci or wheezes CVS: S1S2 Tachycardia no m/r/g ABD: No distention BS + EXT: no edema PRESS LOADER: drowsy not responding to verbal command or any stimuli, 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 Labs: CBC, BMP 05/01/18 20:14 05/01/18 20:14 INR, PTT INR 0.99 (0.83-1.09) 05/01/18 20:14 Problem List - Problems (1) ALS (amyotrophic lateral sclerosis) Assessment/Plan: advanced involving lower extremities, upper extremities and psudpbulbar palsy functional quadriplegia (2) Pneumonia Assessment/Plan: most likely aspiration pneumonia will cont to current abx Code(s): J18.9 - PNEUMONIA, UNSPECIFIED ORGANISM (3) Functional quadriplegia Assessment/Plan: Due to ALS Code(s): R53.2 - FUNCTIONAL QUADRIPLEGIA (4) Palliative care encounter Assessment/Plan: Pallitive care evaluated the patient yesterday agrees for swallow evaluation that he failed, today developed Hypotention BP 70/40 mm of HG with worsening mental status, patient is unresponsive in respiratory stress , sister and son are at bed side explained patient rapidly declining course and considering advanced terminal disease and patient wishes only for IV abx and hydration , no pressers or any measures to prolonged, will cont. with Code(s): Z51.5 - ENCOUNTER FOR PALLIATIVE CARE
[2018-05-04] MEDS ORDERED: SODIUM CHLORIDE 0.9% 500 ML INFUS.BAG IV ONE (08:44)
[2018-05-04] MEDS ORDERED: SODIUM CHLORIDE 1,000 ML IV SCH (09:30)
[2018-05-04] MEDS ORDERED: cefTRIAXone SODIUM 1 GM VIAL ONE (09:43)
[2018-05-04] MEDS ORDERED: DEXTROSE 5%-WATER - 50 ML IVPB ONE (09:43)
[2018-05-04] MEDS: CEFTRIAXONE 1 GM in DEXTROSE 5%-WATER - 50 ML IVPB SCH (12:39)
[2018-05-04 14:42] VITALS: TEMP 97.9
[2018-05-04 15:43] VITALS: BP 50/30; PULSE 45
--- NOTE | 2018-05-04 16:16 | PN ---
Progress Note (short form) - Note Progress Note: NOTE Paged by nursing staff about pt's expiration. Pt unresponsive, even to painful stimuli. Pupils fixed and non-reactive. Pt has no spontaneous breathing, no heart sounds, or breath sounds via auscultation. No carotid or femoral pulses present at this time. Time of pronounced at 15:58h on 05/04/2018 Family notified by nursing staff and at bedside Grievance services to be offered to family. Body to be released to home of family's choice. Dr. Parisi notified.
--- NOTE | 2018-05-04 16:39 | DS ---
Physical Examination Vital Signs: 57 yrs old man with advanced amyotrphic lateral sclerosi with bulbar involvement bed bound admitted with respiratory distress with aspiration Pneumonia, DNR DNI able to make decison refused all intervention except abx and Hydration gradually deteriorated and . Labs: CBC, BMP Discharge Summary Reason For Visit: AMYOTROPIC LATERAL SCLEROSIS PNEUMONIA Current Active Problems ALS (amyotrophic lateral sclerosis) (Acute) Functional quadriplegia (Acute) Palliative care encounter (Acute) Pneumonia (Acute) Respiratory failure (Acute) - Instructions Disposition: - Home Medications Comprehensive Discharge Medication List: Ambulatory Orders
== END 2018-05-04 19:00 | disposition expired | DRG 177 ==
LOC: JER 19:52 → JERBED 22:56 → J8W 05-02 01:35 → JERBED 05-02 23:22 → J8W 05-02 23:23
PROVIDERS: ADMIT Internal Medicine; ATTEND Internal Medicine
DX: J69.0 Pneumonitis due to inhalation of food and vomit (principal); J96.01 Acute respiratory failure with hypoxia; R53.2 Functional quadriplegia; G12.21 Amyotrophic lateral sclerosis; R64 Cachexia; Z68.1 Body mass index [BMI] 19.9 or less, adult; F17.210 Nicotine dependence, cigarettes, uncomplicated; I95.9 Hypotension, unspecified; Z66 Do not resuscitate; Z51.5 Encounter for palliative care; Z74.01 Bed confinement status
CPT/HCPCS: 36415; 71045-TC-FY; 74230-TC-FY; 80053; 81003; 81015; 82803; 83605; 84484; 85025; 85610; 85730; 87040; 87086; 92611-GN; 93005; 93010; 99283-25; J0475; J7030